=== PATIENT | male | born 1955 | race Caucasian/White ===

== ENCOUNTER → 2024-11-17 | Day surgery (SDC) | payer OTHER ==
[~2024-11-17] MED LIST: Lidocaine 1% (PF) 30 ML VIAL ONE; Sodium Bicarbonate 2.5 MEQ/5 ML SDV ONE
[2024-11-17 10:51] VITALS: BMI 26.4
[2024-11-17 10:52] VITALS: BP 106/73; TEMP 97.6
== END ==
LOC: CSHRAD 09:24
PROVIDERS: ATTEND Nurse Practitioner Family
DX: M51.369 Other intervertebral disc degeneration, lumbar region without mention of lumbar back pain or lower extremity pain (principal); N20.0 Calculus of kidney
CPT/HCPCS: 62284; 72132; 77003